=== PATIENT | male | born 1970 | race Caucasian/White ===

== ENCOUNTER 2016-09-17 22:05 | Emergency (ER) | payer OTHER ==
[2016-09-17 23:00] LABS: Basophils % (Auto) 0.4 % (0.0-1.8); Hematocrit 44.6 % (35.5-45.6); Hemoglobin 15.7 gm/dl (11.8-15.2); Mean Corpuscular HGB Conc 35 % (32-34); Mean Corpuscular Hemoglobin 31 pg (28-32); Mean Corpuscular Volume 89 fl (84-94); Platelet Count 176 K/mm3 (140-440); Red Blood Count 5.01 M/mm3 (3.65-5.03); White Blood Count 4.6 K/mm3 (4.5-11.0)
[2016-09-18 00:07] LABS: Anion Gap 18 mmol/L; Blood Urea Nitrogen 12 mg/dL (9-20); Calcium 9.1 mg/dL (8.4-10.2); Carbon Dioxide 26 mmol/L (22-30); Chloride 102.8 mmol/L (98-107); Glucose 146 mg/dL (75-100); Potassium 4.5 mmol/L (3.6-5.0); Sodium 142 mmol/L (137-145)
[2016-09-18] MEDS ORDERED: TORADOL IM ONE (09:38)
--- NOTE | 2016-09-18 09:39 | Emergency Department Report ---
ED General Adult HPI - General Chief complaint: Chest Pain Stated complaint: CHEST PAIN/DIZZY/VOMTING/GABI Time Seen by Provider: 09/18/16 09:20 Source: patient, RN notes reviewed Mode of arrival: Ambulatory Limitations: Language Barrier - History of Present Illness Initial comments: This is a 46-year-old male. He is previously unknown to me. 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 He presents to the ER with left-sided chest pressure. A chest pressure has been present since yesterday. It does not radiate to the back, arms or neck. There is no nausea, vomiting or diaphoresis. The patient reports also having atraumatic back pain yesterday, for which she took a tramadol. Shortly after taking the tramadol, he develops a sensation of feeling strange. There is no leg pain. There is no leg swelling. No recent trips greater than 4 hours. No recent hospital since. No history of cocaine use. No history of tobacco use. No recent aspirin ingestions. -: Gradual Location: chest, back Severity scale (0 -10): 6 Quality: other Consistency: intermittent Improves with: none Worsens with: none Associated Symptoms: chest pain - Related Data Previous Rx's Medication Instructions Recorded Last Taken Type Ciprofloxacin 0.2%(Nf) 0.25 ml AD BID #1 droperette 01/26/15 Unknown Rx [Ciprofloxacin OTIC] Ciprofloxacin HCl [Ciprofloxacin 500 mg PO Q12H #14 tab 01/26/15 Unknown Rx TAB] Prednisone [predniSONE 5 mg (6-Day 5 mg PO .TAPER #1 tab.ds.pk 01/26/15 Unknown Rx Pack, 21 Tabs)] traMADol [Ultram 50 MG tab] 50 mg PO Q4HR PRN #30 tablet 01/26/15 Unknown Rx Allergies Allergy/AdvReac Type Severity Reaction Status Date / Time No Known Allergies Allergy Verified 09/17/16 22:21 ED Review of Systems ROS: Stated complaint: CHEST PAIN/DIZZY/VOMTING/GABI Other details as noted in HPI Constitutional: denies: fever Eyes: denies: vision change ENT: denies: epistaxis Respiratory: see HPI Cardiovascular: chest pain Gastrointestinal: denies: abdominal pain Genitourinary: as per HPI Musculoskeletal: back pain Neurological: as per HPI. denies: abnormal gait Psychiatric: anxiety ED Past Medical Hx - Past Medical History Previous Medical History?: No - Surgical History Past Surgical History?: No - Social History Smoking Status: Never Smoker Substance Use Type: None - Medications Home Medications: Home Medications Medication Instructions Recorded Confirmed Last Taken Type Ciprofloxacin 0.2%(Nf) 0.25 ml AD BID #1 droperette 01/26/15 Unknown Rx [Ciprofloxacin OTIC] Ciprofloxacin HCl [Ciprofloxacin 500 mg PO Q12H #14 tab 01/26/15 Unknown Rx TAB] Prednisone [predniSONE 5 mg (6-Day 5 mg PO .TAPER #1 tab.ds.pk 01/26/15 Unknown Rx Pack, 21 Tabs)] traMADol [Ultram 50 MG tab] 50 mg PO Q4HR PRN #30 tablet 01/26/15 Unknown Rx ED Physical Exam - General Limitations: Language Barrier General appearance: alert, in no apparent distress - Head Head exam: Present: atraumatic, normocephalic - Eye Eye exam: Present: normal appearance, PERRL, EOMI. Absent: nystagmus - ENT ENT exam: Present: normal exam, normal orophraynx, mucous membranes moist, normal external ear exam - Neck Neck exam: Present: normal inspection, full ROM. Absent: tenderness, meningismus - Respiratory Respiratory exam: Present: normal lung sounds bilaterally. Absent: respiratory distress, wheezes, rales, rhonchi, stridor, chest wall tenderness, accessory muscle use, decreased breath sounds - Cardiovascular Cardiovascular Exam: Present: regular rate, normal rhythm, normal heart sounds. Absent: bradycardia, tachycardia, irregular rhythm, systolic murmur, diastolic murmur, rubs, gallop - GI/Abdominal GI/Abdominal exam: Present: soft, normal bowel sounds. Absent: distended, tenderness, guarding, rebound, rigid, pulsatile mass - Rectal Rectal exam: Present: deferred - Extremities Exam Extremities exam: Present: normal inspection, full ROM, normal capillary refill. Absent: tenderness, pedal edema, joint swelling, calf tenderness - Back Exam Back exam: Present: normal inspection, full ROM. Absent: tenderness, CVA tenderness (R), CVA tenderness (L), muscle spasm, paraspinal tenderness, vertebral tenderness - Neurological Exam Neurological exam: Present: alert, oriented X3, normal gait, other (Extraocular movements intact. Tongue midline. No facial droop. Facial sensation intact to light touch in the V1, V2, V3 distribution bilaterally. 5 and 5 strength in 4 extremities.. Sensation is intact to light touch in 4 extremities.). Absent : motor sensory deficit - Psychiatric Psychiatric exam: Present: normal affect, normal mood - Skin Skin exam: Present: warm, dry, intact, normal color. Absent: rash ED Course Vital Signs 09/17/16 09/18/16 09/18/16 22:21 03:24 07:34 Temperature 97.9 F 98.0 F 98.3 F Pulse Rate 80 74 71 Respiratory 18 18 20 Rate Blood Pressure 138/101 135/93 126/91 Blood Pressure [Left] O2 Sat by Pulse 99 98 99 Oximetry 09/18/16 09/18/16 09/18/16 09:19 09:21 09:31 Temperature Pulse Rate 85 80 Respiratory 15 16 21 Rate Blood Pressure 137/94 151/99 Blood Pressure [Left] O2 Sat by Pulse 96 97 98 Oximetry 09/18/16 09/18/16 09:36 11:30 Temperature 98.4 F Pulse Rate 81 77 Respiratory 16 Rate Blood Pressure Blood Pressure 144/80 [Left] O2 Sat by Pulse 100 Oximetry - Reevaluation(s) Reevaluation #1: 09/18/16 11:36 Differential diagnosis: Medication side effect, acute coronary syndrome, pneumonia, pulmonary embolus, acute coronary syndrome, general medical evaluation Assessment and plan: 46-year-old male with chest pain and back pain. He is afebrile with reassuring vital signs. Low risk by heart score, low risk by FRANSISCO score, low risk by well's criteria, no pulmonary embolus or DVT risk factors, perc negative, troponin is negative 3, d-dimer negative as well. X- ray of the chest is negative. His EKG is morphologically abnormal with a right bundle branch block, with no prior for comparison. Cardiology was contacted, he has a follow-up appointment with the photographic press screwmaker, Dr. Torres Cam on September 20, 2 PM and the [place] office. Patient and family/friend understand that the patient is at low risk for major adverse cardiac event. 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 ED Medical Decision Making - Lab Data Result diagrams: 09/17/16 22:51 09/17/16 22:51 Vital Signs 09/17/16 09/18/16 09/18/16 22:21 03:24 07:34 Temperature 97.9 F 98.0 F 98.3 F Pulse Rate 80 74 71 Respiratory 18 18 20 Rate Blood Pressure 138/101 135/93 126/91 O2 Sat by Pulse 99 98 99 Oximetry 09/18/16 09/18/16 09/18/16 09:19 09:21 09:31 Temperature Pulse Rate 85 80 Respiratory 15 16 21 Rate Blood Pressure 137/94 151/99 O2 Sat by Pulse 96 97 98 Oximetry 09/18/16 09:36 Temperature Pulse Rate 81 Respiratory Rate Blood Pressure O2 Sat by Pulse Oximetry Vital Signs 09/17/16 09/18/16 09/18/16 22:21 03:24 07:34 Temperature 97.9 F 98.0 F 98.3 F Pulse Rate 80 74 71 Respiratory 18 18 20 Rate Blood Pressure 138/101 135/93 126/91 O2 Sat by Pulse 99 98 99 Oximetry 09/18/16 09/18/16 09/18/16 09:19 09:21 09:31 Temperature Pulse Rate 85 80 Respiratory 15 16 21 Rate Blood Pressure 137/94 151/99 O2 Sat by Pulse 96 97 98 Oximetry 09/18/16 09:36 Temperature Pulse Rate 81 Respiratory Rate Blood Pressure O2 Sat by Pulse Oximetry Lab Results 09/17/16 09/17/16 09/18/16 Range/Units 22:51 22:51 01:33 WBC 4.6 (4.5-11.0) K/mm3 RBC 5.01 (3.65-5.03) M/mm3 Hgb 15.7 H (11.8-15.2) gm/dl Hct 44.6 (35.5-45.6) % MCV 89 (84-94) fl MCH 31 (28-32) pg MCHC 35 H (32-34) % RDW 13.0 L (13.2-15.2) % Plt Count 176 (140-440) K/mm3 Lymph % (Auto) 29.3 (13.4-35.0) % Dickson % (Auto) 6.5 (0.0-7.3) % Eos % (Auto) 2.0 (0.0-4.3) % Baso % (Auto) 0.4 (0.0-1.8) % Lymph # 1.3 (1.2-5.4) K/mm3 Dickson # 0.3 (0.0-0.8) K/mm3 Eos # 0.1 (0.0-0.4) K/mm3 Baso # 0.0 (0.0-0.1) K/mm3 Seg Neutrophils % 61.8 (40.0-70.0) % Seg Neutrophils # 2.8 (1.8-7.7) K/mm3 PT (12.2-14.9) Sec. INR (0.87-1.13) APTT (24.2-36.6) Sec. D-Dimer (0-234) ng/mlDDU Sodium 142 (137-145) mmol/L Potassium 4.5 (3.6-5.0) mmol/L Chloride 102.8 (98-107) mmol/L Carbon Dioxide 26 (22-30) mmol/L Anion Gap 18 mmol/L BUN 12 (9-20) mg/dL Creatinine 0.8 (0.8-1.5) mg/dL Estimated GFR > 60 ml/min BUN/Creatinine Ratio 15.00 % Glucose 146 H (75-100) mg/dL Calcium 9.1 (8.4-10.2) mg/dL Troponin T < 0.010 < 0.010 (0.00-0.029) ng/mL 09/18/16 09/18/16 Range/Units 04:22 09:53 WBC (4.5-11.0) K/mm3 RBC (3.65-5.03) M/mm3 Hgb (11.8-15.2) gm/dl Hct (35.5-45.6) % MCV (84-94) fl MCH (28-32) pg MCHC (32-34) % RDW (13.2-15.2) % Plt Count (140-440) K/mm3 Lymph % (Auto) (13.4-35.0) % Dickson % (Auto) (0.0-7.3) % Eos % (Auto) (0.0-4.3) % Baso % (Auto) (0.0-1.8) % Lymph # (1.2-5.4) K/mm3 Dickson # (0.0-0.8) K/mm3 Eos # (0.0-0.4) K/mm3 Baso # (0.0-0.1) K/mm3 Seg Neutrophils % (40.0-70.0) % Seg Neutrophils # (1.8-7.7) K/mm3 PT 13.1 (12.2-14.9) Sec. INR 1.00 (0.87-1.13) APTT 26.6 (24.2-36.6) Sec. D-Dimer < 135.00 (0-234) ng/mlDDU Sodium (137-145) mmol/L Potassium (3.6-5.0) mmol/L Chloride (98-107) mmol/L Carbon Dioxide (22-30) mmol/L Anion Gap mmol/L BUN (9-20) mg/dL Creatinine (0.8-1.5) mg/dL Estimated GFR ml/min BUN/Creatinine Ratio % Glucose (75-100) mg/dL Calcium (8.4-10.2) mg/dL Troponin T < 0.010 (0.00-0.029) ng/mL - EKG Data When compared to previous EKG there are: previous EKG unavailable 09/18/16 11:37 EKG #1 demonstrates normal sinus, 78 bpm, normal axis, right bundle branch block, not morphologically consistent with STEMI, there is no prior EKG available for comparison. EKG #2 demonstrates normal sinus, 73 bpm, normal axis, right bundle branch block , not consistent STEMI. - Radiology Data Radiology results: report reviewed, image reviewed Critical care attestation.: If time is entered above; I have spent that time in minutes in the direct care of this critically ill patient, excluding procedure time. ED Disposition Clinical Impression: Abnormal EKG Disposition: DISCHARGED TO HOME OR SELFCARE Is pt being admited?: No Does the pt Need Aspirin: No Condition: Good Instructions: Chest Pain (ED) Additional Instructions: follow up with the photographic press screwmaker Dr Torres Cam, september 20, at 2pm in the [place] [facility] [address] [place] [address] return to the ER right away with any new, worsened or different symptoms Seguimiento con el cardilogo Dr. Torres Cam, , a las 2 pm en [facility] [place] [address] [facility], [place], [place] [address] Telfono: [phone] Volver a la emilia de emergencias inmediatamente con cualquier nuevo, empeorado o diferentes sntomas Referrals: PRIMARY CAREMD [Primary Care Provider] - 3-5 Days TORRESMATT WISE MD [Staff Physician] - 3-5 Days
[2016-09-18 10:19] LABS: Partial Thromboplastin Time 26.6 Sec. (24.2-36.6)
--- NOTE | 2016-09-18 10:47 | XRay Report ---
PA and lateral chest: Curvilinear focal areas of atelectasis or scarring are present at the left lung base. No infiltrates or nodules. The heart is normal in size. No vascular congestion. No prior study for comparison. Impression: Focal left atelectasis/scarring.
[2016-09-18 16:32] VITALS: BP 144/80
== END 2016-09-18 11:30 | disposition home or self-care (01) ==
LOC: ED 22:05
DX: R94.31 Abnormal electrocardiogram [ECG] [EKG] (principal)
CPT/HCPCS: 36415; 71020; 80048; 84484; 85025; 85379; 85610; 85730; 93005; 93010

== ENCOUNTER 2016-09-25 06:47 | Day surgery (SDC) | payer OTHER ==
[2016-09-25 07:32] LABS: Basophils % (Auto) 0.4 % (0.0-1.8); Eosinophils % (Auto) 2.3 % (0.0-4.3); Hematocrit 45.5 % (35.5-45.6); Hemoglobin 15.7 gm/dl (11.8-15.2); Mean Corpuscular HGB Conc 35 % (32-34); Mean Corpuscular Hemoglobin 31 pg (28-32); Mean Corpuscular Volume 90 fl (84-94); Platelet Count 272 K/mm3 (140-440); Red Blood Count 5.09 M/mm3 (3.65-5.03); White Blood Count 5.4 K/mm3 (4.5-11.0)
[2016-09-25 07:41] LABS: INR 0.99 (0.87-1.13)
[2016-09-25 07:47] LABS: Anion Gap 16 mmol/L; Calcium 8.9 mg/dL (8.4-10.2); Carbon Dioxide 24 mmol/L (22-30); Glucose 112 mg/dL (75-100); Potassium 3.9 mmol/L (3.6-5.0); Sodium 142 mmol/L (137-145)
[2016-09-25] MEDS ORDERED: NACL 0.9% 500 ML 500 ML IV SCH (08:00)
[2016-09-25] MEDS ORDERED: HEPARIN/NS 5000 UNIT/500ML(CATH LAB) 1,500 ML IR ONE (08:05)
[2016-09-25] MEDS ORDERED: CALAN ONE (08:06)
[2016-09-25] MEDS: SUBLIMAZE ONE ×2 (08:23→09:08)
[2016-09-25] MEDS: VERSED ONE ×2 (08:23→09:08)
[2016-09-25] MEDS: XYLOCAINE 2% INFILTRATI ONE ×2 (08:24→09:10)
[2016-09-25] MEDS: HEPARIN 10,000 UNITS/10 ML ONE ×2 (08:24→09:12)
[2016-09-25 08:48] LABS: BUN/Creatinine Ratio 23.33; Blood Urea Nitrogen 14 mg/dL (9-20)
--- NOTE | 2016-09-25 09:45 | Short Stay Summary ---
Short Stay Documentation Date of service: 09/25/16 - History H&P: obtained from office - Allergies and Medications Current Medications: Allergies No Known Allergies Allergy (Verified 09/17/16 22:21) Home Medications Medication Instructions Recorded Confirmed Last Taken Type Aspirin EC [Aspirin Enteric Coated 81 mg PO DAILY 09/25/16 09/25/16 09/25/16 07: 13 History TAB] Metoprolol 12.5 mg PO DAILY 09/25/16 09/25/16 09/25/16 07:14 History Active Medications Sodium Chloride (Nacl 0.9% 500 Ml) 500 mls @ 50 mls/hr IV DIRECT ROSANGELA Stop: 09/25/16 17:59 Last Admin: 09/25/16 08:18 Dose: 50 mls/hr - Brief post op/procedure progress note Date of procedure: 09/25/16 Pre-op diagnosis: CMP; chest pain Post-op diagnosis: same Procedure: Elective coronary angiography Condition: stable - Hospital course Hospital course: The patient presented for a scheduled elective cardiac catheterization. He successfully underwent left heart catheterization via right radial artery per Dr. Beckman, which revealed normal coronary arteries and ejection fraction 35-40 %. Patient remained clinically and hemodynamically stable throughout the procedure and recovery and was cleared for discharge home in stable condition. - Disposition Condition at discharge: Stable Disposition: DISCHARGED TO HOME OR SELFCARE Short Stay Discharge Plan Additional Instructions: Make follow up appointment with Sleep Technologist- in 7 days Follow up with: PRIMARY CARE, [Primary Care Provider] - 7 Days Forms: CardCath PCI D/C Instructions, Post Sedation D/C Instructions
--- NOTE | 2016-09-25 10:16 | Cardiac Catherization Report ---
CARDIAC CATHETERIZATION CLINICAL INFORMATION: The patient is a 46-year-old gentleman with history of chest pains, had echocardiogram done which showed low ejection fraction in the range of 40-45% with chest pain and low ejection fraction, he is scheduled for cardiac catheterization for definitive diagnosis and treatment. The patient is aware of the procedure, potential complications and the alternatives of therapy available. The patient is willing to proceed with cardiac catheterization. DESCRIPTION OF PROCEDURE: The patient was brought to the catheterization laboratory in a fasting condition. The right wrist area and forearm thoroughly cleansed with chlorhexidine solution and sterile drapes were applied. Local anesthesia was achieved using 2% Xylocaine. Right radial artery puncture was made using 21-gauge arterial puncture needle. Subsequently, a 5-Polish sheath was introduced. A 5-Polish multipurpose catheter was used to obtain the angiograms of the left coronary artery in multiple views and subsequently using power injector, left ventriculogram was performed in TY projection. A 24 mL was injected at 8 mL per second. Subsequently, JR4 catheter was used to obtain the angiograms of the right coronary artery in TY and [place] projections. At the end of the procedure, catheter and sheath were removed. The patient was sedated with IV Versed and fentanyl and received 3000 units of intravenous heparin and 5 mg of intra-arterial verapamil during the procedure. Following findings were noted. HEMODYNAMICS: 1. Opening aortic pressure 126/71, left ventricular pressure 140/17. No gradient across the aortic valve. Estimated ejection fraction 35-40%, 2. Left ventriculogram done in TY projection shows left ventricular size upper limits of normal to mild to moderate LV dysfunction. Ejection fraction was felt to be 35-40%. No significant mitral regurgitation noted. 3. Right coronary artery dominant vessel, angiographically smooth and normal, arises normally. 4. Left coronary artery arises normally from left coronary cusp. Left main, LAD curving around the apex and its branches. Circumflex artery and its branches are angiographically smooth and normal. FINAL IMPRESSION: 1. Left ventricular size is upper limits of normal with mild to moderate LV dysfunction with EF in the range of 35-40%. No mitral regurgitation. 2. Normal coronary anatomy angiographically. 3. Procedure was uncomplicated. At this time, the patient's diagnosis appear to be dilated cardiomyopathy, would continue medical therapy and risk factor modification. No untoward complications were noted. [facility]# [id number] WILL/SAVANNAH
--- NOTE | 2016-09-25 11:15 | Event Note ---
Date: 09/25/16 Follow up in our [place] office with Dr. Wise on 09/27/2016 @ 1:45PM. Marlee GALLAGHER NP / DR. WISE
[2016-09-25 11:38] VITALS: BP 116/78
== END 2016-09-25 11:55 | disposition home or self-care (01) ==
LOC: OPU 06:47
PROVIDERS: ATTEND Internal Medicine
DX: R07.9 Chest pain, unspecified (principal); Z72.89 Other problems related to lifestyle; Z82.49 Family history of ischemic heart disease and other diseases of the circulatory system
CPT/HCPCS: 36415; 80048; 85025; 85610; 85730; 93005; 93010; 93458; C1894; J1644; J2250; J3010; J7040; Q9967